=== PATIENT | male | born 1950 | race Caucasian/White ===

== ENCOUNTER 2020-12-01 16:45 | Emergency (ER) | payer OTHER ==
[~2020-12-01] VITALS: Ht 165.1 cm; Wt 64.3 kg
[2020-12-01 17:20] VITALS: BP 177/74
[2020-12-01] MEDS ORDERED: AMOX1TAB61 PO (17:43)
--- NOTE | 2020-12-01 17:44 | PHYS DOC ---
Past Medical History Past Medical History: Hypertension Additional Past Medical Histor: CHRONES Past Surgical History: Other Additional Past Surgical Histo: PART. GASTRIC BYPASS,RIGHT HIP, Smoking Status: Former Smoker Alcohol Use: None Drug Use: None General Adult EDM: Chief Complaint: ANIMAL BITE HPI: HPI: Patient is a 70 year old male patient who presents to the ED today complaining of cat bites and scratches that occurred yesterday. Patient states he startled his own cat which attacked him. Patient states the cat is up-to-date with his/her shots. Review of Systems: Review of Systems: Constitutional: Denies fever or chills. [] Musculoskeletal: Denies back pain or joint pain. [] Integument: Reports cat scratches and bites on bilateral upper extremity Neurologic: Denies headache, focal weakness or sensory changes. [] [] Psychiatric: Denies depression or anxiety. [] Heart Score: C/O Chest Pain: N/A Risk Factors: Risk Factors: DM, Current or recent (<one month) smoker, HTN, HLP, family history of CAD, obesity. Risk Scores: Score 0 - 3: 2.5% MACE over next 6 weeks - Discharge Home Score 4 - 6: 20.3% MACE over next 6 weeks - Admit for Clinical Observation Score 7 - 10: 72.7% MACE over next 6 weeks - Early Invasive Strategies Allergies: Allergies: Allergies Coded Allergies Type Severity Reaction Last Updated Verified meperidine Allergy Intermediate VOMITING 04/15/14 Yes Physical Exam: PE: Constitutional: Well developed, well nourished, no acute distress, non-toxic appearance. [] Skin: Bilateral upper extremities including hands and fingers with multiple bruises and scratches consistent with cat attack. Full range of motion to bilateral upper extremities. Adequate radial, medial, ulnar sensation to bilateral upper extremities. +2 bilateral radial pulses, cap refill less than 2 seconds to bilateral upper extremities Back: No tenderness, no CVA tenderness. [] Extremities: No tenderness, no cyanosis, no clubbing, ROM intact, no edema. [] Neurologic: Alert and oriented X 3, normal motor function, normal sensory function, no focal deficits noted. [] Psychologic: Affect normal, judgement normal, mood normal. [] EKG: EKG: [] Radiology/Procedures: Radiology/Procedures: [] Course & Med Decision Making: Course & Med Decision Making Pertinent Labs and Imaging studies reviewed. (See chart for details) This is 70-year-old male patient presented to the ED today with bilateral upper extremity cat scratches and bites from his own cat attack. Patient was sent home on Augmentin, tetanus updated. Wound care instructions and return precautions provided Angela Disclaimer: Angela Disclaimer: This electronic medical record was generated, in whole or in part, using a voice recognition dictation system. Departure Departure Impression: Primary Impression: Open wound of left upper arm due to cat bite Additional Impression: Open wound of right upper arm due to cat bite Disposition: HOME / SELF CARE / HOMELESS Condition: STABLE Referrals: JUSTIN MENDEZ MD (PCP) Follow-up in 1 week Patient Instructions: Cat Scratch Disease Additional Instructions: You have cat bites and scratches to bilateral upper extremities. You can wash the area with regular soap and water and apply Neosporin to the areas twice a day. Please take the prescribed antibiotics until completed. Please follow-up with your doctor in 1 week. Please come back to the ED at any point wound condition worsens Scripts Amoxicillin/Potassium Clav (AUGMENTIN 875-125 TABLET) 1 Each Tablet 1 TAB PO BID for 10 Days, #20 TAB 0 Refills Prov: CYNTHIA KILGORE APRN 12/01/20 CYNTHIA KILGORE APRN Dec 01, 2020 17:44
[2020-12-01] MEDS ORDERED: DIPH,PERTUSS(ACELL),TET VAC/PF 0.5 ML SYRINGE. VAX IM ONE (18:15)
== END 2020-12-01 18:31 | disposition home or self-care (01) ==
LOC: ER 16:45
DX: S60.222A Contusion of left hand, initial encounter (principal); S60.221A Contusion of right hand, initial encounter; I10 Essential (primary) hypertension; Z98.84 Bariatric surgery status; W55.03XA Scratched by cat, initial encounter; Y93.89 Activity, other specified; Y92.89 Other specified places as the place of occurrence of the external cause; Y99.8 Other external cause status
CPT/HCPCS: 90471; 90715; 99283